=== PATIENT | female | born 1975 | race Caucasian/White ===

== ENCOUNTER 2016-11-19 00:37 | Emergency (ER) | payer SELFPAY ==
[~2016-11-19] VITALS: Ht 170.2 cm; Wt 84.0 kg
[2016-11-19 03:08] VITALS: BP 130/70
[2016-11-19] MEDS ORDERED: KETOROLAC 30MG/ML VIAL IM ONE (03:15)
[2016-11-19 03:37] LABS: BASOPHILS % 0.3 % (0.0-2.0); EOSINOPHILS % 0.2 % (0.0-5.0); HEMATOCRIT. 39.2 % (36.0-48.0); HEMOGLOBIN. 13.3 g/dL (12.0-16.0); LYMPHOCYTES % 12.5 % (20.0-50.0); MEAN CORPUSCULAR HEMOGLOBIN 30.1 pg (28.0-32.0); MEAN CORPUSCULAR VOLUME 88.5 fL (81.0-99.0); MEAN PLATELET VOLUME 8.3 fl (7.4-10.4); MONOCYTES % 4.6 % (2.0-8.0); NEUTROPHILS % 82.4 % (40.0-76.0); PLATELET 186 x1000/uL (130-400); RED BLOOD CELL COUNT 4.43 mill/uL (4.2-5.4); RED CELL DISTRIBUTION WIDTH 13.4 % (11.6-14.6)
[2016-11-19 03:50] LABS: CARBON DIOXIDE 25 mEq/L (21-32); CHLORIDE 105 mEq/L (98-107)
== END 2016-11-19 04:17 | disposition home or self-care (01) ==
LOC: ER 00:37
DX: H66.92 Otitis media, unspecified, left ear (principal); R07.0 Pain in throat; E66.9 Obesity, unspecified
CPT/HCPCS: 36415; 80048; 85025; 96372; 99284; J1885; Z7610